=== PATIENT | female | born 1995 | race African-American/Black ===

== ENCOUNTER 2019-09-03 13:21 | Emergency (ER) | payer MEDICAID, OTHER, SELFPAY ==
[~2019-09-03] VITALS: Ht 167.6 cm; Wt 84.8 kg
[2019-09-03] MEDS ORDERED: ACETAMINOPHEN 325MG TABLET PO ONE (14:45)
[2019-09-03 16:41] VITALS: BP 118/79
== END 2019-09-03 16:43 | disposition home or self-care (01) ==
LOC: ER 13:21
DX: Z03.818 Encounter for observation for suspected exposure to other biological agents ruled out (principal); J06.9 Acute upper respiratory infection, unspecified
CPT/HCPCS: 71045; 81025; 99284; C9803; U0003